=== PATIENT | male | born 1975 | race Caucasian/White ===

== ENCOUNTER 2025-02-19 07:56 | Outpatient (CLI) | payer OTHER ==
--- NOTE | 2025-02-19 16:24 | RADIOLOGY REPORT ---
Procedure: NM GASTRIC EMPTYING STDY-DM Exam Date: 02/19/2025 07:19 AM Reason for study/Clinical History: ESOPHAGEAL DYSPHAGIA Comparison Study: None Nuclear Medicine Solid Gastric Emptying Study Technique: The patient received an oral administration of 1.1 mCi of technetium 99m sulfur colloid labeled to scrambled eggs as a part of the standardized meal. Quantitative data was obtained from these images and the geometric mean for percent gastric retention was determined at multiple time points. Findings: Percent gastric retention is as follows: One hour 56 % retained, (normal greater than or equal to 70%) Two hour 30 % retained, (normal less than or equal to 60%) Four hour 12 % retained, (normal between 0% and 10%) Impression: Slightly increased rate of gastric emptying at 60 minutes. Slightly increased retained gastric contents at 4 hours. Clinical correlation advised. *Source: Journal of [employer] Technology. Vol.36. No.1. June 2007
== END 2025-02-19 22:59 | disposition home or self-care (01) ==
LOC: NM 07:56
PROVIDERS: ATTEND Physician Assistant
DX: R13.19 Other dysphagia (principal)
CPT/HCPCS: 78264; A9541

== ENCOUNTER 2025-03-05 12:34 | Outpatient (CLI) | payer BC ==
--- NOTE | 2025-03-05 18:35 | RADIOLOGY REPORT ---
EXAM: ESOPHAGRAM HISTORY: OTHER DYSPHAGIA 2.0 MIN FLUORO , 70.[address] ERWIN duncan FLUORO TIME: 2.0 minutes. AIR KERMA: 70.49 mGy TECHNIQUE: The patient was positioned supine and upright at the fluoroscopy unit and instructed to swallow thin and thick barium contrast material under fluoroscopic examination. FINDINGS: Normal swallow reflex. No aspiration. There were several tertiary contractions. No mucosal ulcerations seen throughout the esophagus. There is a moderate sized axial hiatal hernia which does not appear reducible. Contrast proceeded appropriately through the gastric lumen without restriction. Mild gastroesophageal reflux was noted while the patient was in upright position. IMPRESSION: 1. Normal esophogram with the exception of moderate sized axial hiatal hernia. 2. Mild gastroesophageal reflux.
== END 2025-03-05 23:59 | disposition home or self-care (01) ==
LOC: RAD 12:34
PROVIDERS: ATTEND Physician Assistant
DX: K44.9 Diaphragmatic hernia without obstruction or gangrene (principal); R13.19 Other dysphagia
CPT/HCPCS: 74220